=== PATIENT | male | born 1940 | race Caucasian/White ===

== ENCOUNTER 2018-05-23 11:59 | Day surgery (SDC) | payer MEDICARE ==
[~2018-05-23] VITALS: Ht 185.4 cm; Wt 79.4 kg
[2018-05-23] VITALS (8 sets, daily range): BP systolic 102–141; BP diastolic 61–85
[2018-05-23] MEDS ORDERED: sod bicarbonate 150mEq in D5W 1,150 ML IV ONE (12:30)
[2018-05-23] MEDS ORDERED: diphenhydrAMINE 25mg capsule PO PRN (12:30)
[2018-05-23 13:20] LABS: BASOPHILS % (AUTO) 0.6 % (0-1); EOSINOPHILS # (AUTO) 0.3 X10'3 (0-0.9); EOSINOPHILS % (AUTO) 3.8 % (0-6); LYMPHOCYTES # (AUTO) 0.9 X10'3 (1.1-4.8); LYMPHOCYTES % (AUTO) 11.8 % (21-51); MEAN CORPUSCULAR HGB CONC 31.6 % (33.0-36.5); MEAN CORPUSCULAR VOLUME 75.9 FL (78-98); MEAN PLATELET VOLUME 9.2 FL (7.4-10.4); MONOCYTES # (AUTO) 0.7 X10'3 (0-0.9); MONOCYTES % (AUTO) 9.8 % (2-12); NEUTROPHILS # (AUTO) 5.5 X10'3 (1.8-7.7); PRE OP HEMATOCRIT 37.3 % (42.0-52.0); PRE OP HEMOGLOBIN 11.8 g/dL (14.0-17.9); PRE OP PLATELET COUNT 175 X10'3 (140-440); RED BLOOD COUNT 4.91 X10'6 (4.70-6.10); RED CELL DISTRIBUTION WIDTH 25.2 % (11.5-14.5)
[2018-05-23 13:37] LABS: ALBUMIN 3.4 G/DL (3.4-5.0); ANION GAP 10 (8-16); BLOOD UREA NITROGEN 21 MG/DL (7-18); BUN/CREATININE RATIO 15.3 (5.4-32.0); CALCIUM 8.9 MG/DL (8.5-10.1); CHLORIDE 99 MMOL/L (99-107); CREATININE 1.37 MG/DL (0.60-1.10); GLUCOSE 87 MG/DL (70-104); INR 1.2 INR; MAGNESIUM 1.9 MG/DL (1.5-2.4); POTASSIUM 3.8 MMOL/L (3.5-5.1); PROTHROMBIN TIME 11.5 SECONDS (9.0-12.0); SODIUM 140 MMOL/L (135-145); TOTAL CARBON DIOXIDE 30.6 MMOL/L (24-32); eGFR 50 ML/MIN
[2018-05-23 13:40] LABS: PLATELET ESTIMATE NORMAL
[2018-05-23 13:41] LABS: ANISOCYTOSIS 3+; ELLIPTOCYTES 1+; HYPOCHROMASIA 1+; MICROCYTOSIS 2+
[2018-05-23] MEDS ORDERED: ceFAZolin 1GM/D5W- ADD-VANTAGE 50 ML IV ONE (14:31)
[2018-05-23] MEDS ORDERED: lidocaine 1%/epinephrine 1:100,000 injection 50ml vial ONE (14:32)
[2018-05-23] MEDS ORDERED: midazolam 2 mg/2 ml injection ONE ×2 (14:32→16:14)
[2018-05-23] MEDS ORDERED: ceFAZolin 1000mg inj ONE (14:32)
[2018-05-23] MEDS ORDERED: fentaNYL/PF 50MCG/1 ML 2ML syringe ONE ×2 (14:32→16:12)
[2018-05-23] MEDS ORDERED: proCHLORperazine 10 MG/2 ml inj ONE (15:22)
[2018-05-23] MEDS ORDERED: iohexol 350MG/ML 100ml bottle IV ONE (15:31)
[2018-05-23] MEDS ORDERED: O2 (17:24)
[2018-05-23] MEDS ORDERED: ASPI-1265 PO (17:24)
[2018-05-23] MEDS ORDERED: APIX5TAB3 PO (17:24)
[2018-05-23] MEDS ORDERED: LEVO125T8 PO (17:24)
[2018-05-23] MEDS ORDERED: PANT40TA4 PO (17:24)
[2018-05-23] MEDS ORDERED: ONDA4TAB12 PO (17:24)
[2018-05-23] MEDS ORDERED: DOBU500I5 IV (17:24)
[2018-05-23] MEDS ORDERED: MECL-111 PO (17:24)
[2018-05-23] MEDS ORDERED: CARV3.122 PO (17:24)
[2018-05-23] MEDS ORDERED: ATOR20TA66 PO (17:24)
[2018-05-23] MEDS ORDERED: LISI40TA4 PO (17:24)
[2018-05-23] MEDS ORDERED: FURO-150 PO (17:24)
[2018-05-23] MEDS ORDERED: METO-292 PO (17:57)
[2018-05-23] MEDS ORDERED: AMIO200T40 PO (17:57)
== END 2018-05-23 19:35 | disposition home or self-care (01) ==
LOC: SSTAY O 11:59
PROVIDERS: ATTEND Internal Medicine Cardiovascular Disease
DX: Z45.02 Encounter for adjustment and management of automatic implantable cardiac defibrillator (principal); I25.10 Atherosclerotic heart disease of native coronary artery without angina pectoris; I42.9 Cardiomyopathy, unspecified; I10 Essential (primary) hypertension; I48.91 Unspecified atrial fibrillation; E78.5 Hyperlipidemia, unspecified; E03.9 Hypothyroidism, unspecified; K21.9 Gastro-esophageal reflux disease without esophagitis; Z86.718 Personal history of other venous thrombosis and embolism; Z88.1 Allergy status to other antibiotic agents; Z88.8 Allergy status to other drugs, medicaments and biological substances; Z79.899 Other long term (current) drug therapy; Z87.01 Personal history of pneumonia (recurrent); Z95.0 Presence of cardiac pacemaker; Z95.1 Presence of aortocoronary bypass graft; Z98.890 Other specified postprocedural states
CPT/HCPCS: 33225; 33249; 36415; 80048; 83735; 85025; 85610; 93005; 93641; 99152; 99153; A4565; A6402; C1769; C1882; C1887; C1894; C1895; C1900; J0690; J0780; J2250; J3010; J3490; Q0163; Q9967; A4620

== ENCOUNTER 2020-05-18 12:21 | Emergency (ER) | payer MEDICARE ==
[~2020-05-18] VITALS: Ht 185.4 cm; Wt 93.3 kg
[~2020-05-18 12:21] MED LIST: APIX5TAB3 PO; ASPI-1265 PO; ATOR20TA66 PO; ATRIN IH; BENZ1LOZ30 MM; CARV6.2513 PO; DIGO125T97 PO; FINA5TAB11 PO; FOLI0.4T14 PO; LACT1CAP26 PO; LEVO137T2 PO; MELA3TAB11 PO; MYC15CR TP; NYST1000 PO; ONDA4TAB12 PO; PANT40TA54 PO; SACU1TAB PEG; TIOT4MIS3 IH
[2020-05-18 12:31] VITALS: BP 112/73
[2020-05-18 12:56] LABS: BASOPHILS # (AUTO) 0.1 X10'3 (0-0.2); BASOPHILS % (AUTO) 0.7 % (0-1); EOSINOPHILS # (AUTO) 0.3 X10'3 (0-0.9); EOSINOPHILS % (AUTO) 3.3 % (0-6); HEMATOCRIT 38.5 % (42.0-52.0); HEMOGLOBIN 12.4 g/dl (14.0-17.9); LYMPHOCYTES # (AUTO) 1.5 X10'3 (1.1-4.8); LYMPHOCYTES % (AUTO) 15.6 % (21-51); MEAN CORPUSCULAR HEMOGLOBIN 25.2 PG (27.0-31.0); MEAN CORPUSCULAR HGB CONC 32.1 g/dL (33.0-36.5); MEAN CORPUSCULAR VOLUME 78.4 FL (78-98); MEAN PLATELET VOLUME 9.1 FL (7.4-10.4); MONOCYTES # (AUTO) 1.3 X10'3 (0-0.9); MONOCYTES % (AUTO) 12.9 % (2-12); NEUTROPHILS # (AUTO) 6.6 X10'3 (1.8-7.7); NEUTROPHILS % (AUTO) 67.5 % (42-75); PLATELET COUNT 144 X10'3 (140-440); RED BLOOD COUNT 4.91 X10'6 (4.70-6.10); RED CELL DISTRIBUTION WIDTH 19.7 % (11.5-14.5); WHITE BLOOD COUNT 9.8 X10'3 (4.5-11.0)
[2020-05-18 13:14] LABS: ALANINE AMINOTRANSFERASE 26 U/L (12-78); ALBUMIN 3.7 G/DL (3.4-5.0); ALBUMIN/GLOBULIN RATIO 0.9 (1.1-1.5); ALKALINE PHOSPHATASE 74 IU/L (46-116); ANION GAP 9 (8-16); ANISOCYTOSIS 2+; ASPARTATE AMINO TRANSFERASE 23 U/L (10-37); BILIRUBIN,TOTAL 0.9 MG/DL (0.1-1.0); BLOOD UREA NITROGEN 22 MG/DL (7-18); BUN/CREATININE RATIO 15.2 (5.4-32.0); CALCIUM 8.8 MG/DL (8.5-10.1); CHLORIDE 103 MMOL/L (99-107); CREATININE 1.45 MG/DL (0.60-1.10); GLUCOSE 96 MG/DL (70-104); LARGE PLATELETS FEW; MICROCYTOSIS 1+; PLATELET ESTIMATE DECREASED; POTASSIUM 4.3 MMOL/L (3.5-5.1); SODIUM 136 MMOL/L (135-145); TOTAL CARBON DIOXIDE 23.8 MMOL/L (24-32); eGFR 47 ML/MIN
[2020-05-18] MEDS ORDERED: aspirin 81mg tab.chew PO ONE (14:05)
--- NOTE | 2020-05-18 14:20 | NUR ---
PT SENT TO THE ER BY UNIT SUPPORT REPRESENTATIVE AT [facility] FOR LABS TO CHECK HIS K+ LEVEL. PT DENIES ANY SOB, CP, DIZZINESS. LABS HAVE BEEN DRAWN AND PROVIDER TO DISCUSS RESULTS WITH PT.
== END 2020-05-18 14:39 | disposition home or self-care (01) ==
LOC: ER 12:23
DX: N17.9 Acute kidney failure, unspecified (principal); R77.8 Other specified abnormalities of plasma proteins; I50.9 Heart failure, unspecified; E78.00 Pure hypercholesterolemia, unspecified; I10 Essential (primary) hypertension; G89.29 Other chronic pain; R79.89 Other specified abnormal findings of blood chemistry; Z98.890 Other specified postprocedural states; Z88.8 Allergy status to other drugs, medicaments and biological substances; Z79.01 Long term (current) use of anticoagulants; Z79.82 Long term (current) use of aspirin; Z79.899 Other long term (current) drug therapy
CPT/HCPCS: 36415; 71045; 80053; 83880; 84484; 85008; 85025; 93005; 99285

== ENCOUNTER 2024-05-09 11:59 | Inpatient (IN) | payer MEDICARE, MEDICAID ==
[~2024-05-09] VITALS: Ht 185.4 cm; Wt 86.4 kg
[~2024-05-09 11:59] MED LIST changes: +AMI200T PO; -ATOR20TA66 PO; +ATOR80TA PO; -ATRIN IH; -BENZ1LOZ30 MM; -CARV6.2513 PO; +CEFD300C3 PO; -DIGO125T97 PO; -FINA5TAB11 PO; +FLO0.1T PO; +FLUT1BLS4 INH; +LIOT5TAB10 PO; +LOSA-415 PO; -MELA3TAB11 PO; +MELA5TAB66 PO; +METO-395 PO; +MIDO5TAB4 PO; -MYC15CR TP; -NYST1000 PO; +ONDA-243 PO; -ONDA4TAB12 PO; -SACU1TAB PEG; +SPIR25TA5 PO; -TIOT4MIS3 IH
[2024-05-09] MEDS ORDERED: normal saline 1000ML IV soln IVB ONE (13:30)
[2024-05-09 13:48] LABS: BASOPHILS # (AUTO) 0.1 X10'3 (0-0.2); EOSINOPHILS # (AUTO) 0.1 X10'3 (0-0.9); EOSINOPHILS % (AUTO) 0.7 % (0-6); HEMATOCRIT 35.5 % (42.0-52.0); HEMOGLOBIN 11.6 g/dl (14.0-17.9); LYMPHOCYTES # (AUTO) 0.6 X10'3 (1.1-4.8); LYMPHOCYTES % (AUTO) 6.5 % (21-51); MEAN CORPUSCULAR HEMOGLOBIN 25.9 PG (27.0-31.0); MEAN CORPUSCULAR HGB CONC 32.7 g/dL (33.0-36.5); MEAN CORPUSCULAR VOLUME 79.4 FL (78-98); MEAN PLATELET VOLUME 8.8 FL (7.4-10.4); MONOCYTES # (AUTO) 1.3 X10'3 (0-0.9); MONOCYTES % (AUTO) 13.8 % (2-12); NEUTROPHILS # (AUTO) 7.1 X10'3 (1.8-7.7); PLATELET COUNT 137 X10'3 (140-440); RED BLOOD COUNT 4.47 X10'6 (4.70-6.10); RED CELL DISTRIBUTION WIDTH 21.8 % (11.5-14.5); WHITE BLOOD COUNT 9.1 X10'3 (4.5-11.0)
[2024-05-09 14:12] LABS: ANION GAP 9 (8-16); BLOOD UREA NITROGEN 25 MG/DL (7-18); BUN/CREATININE RATIO 18.1 (10.0-20.0); CALCIUM 8.7 MG/DL (8.5-10.1); CHLORIDE 91 MMOL/L (99-107); CREATININE 1.38 MG/DL (0.60-1.10); GLUCOSE 107 MG/DL (70-104); MAGNESIUM 1.7 MG/DL (1.5-2.4); POTASSIUM 4.3 MMOL/L (3.5-5.1); PRO BRAIN NATRIURETIC PEPTIDE 4884 PG/ML (0-450); SODIUM 121 MMOL/L (135-145); TOTAL CARBON DIOXIDE 21.3 MMOL/L (24-32); eCRCL 44 ML/MIN; eGFR 49 ML/MIN
[2024-05-09 14:34] LABS: ACANTHOCYTES FEW; ANISOCYTOSIS 3+; MICROCYTOSIS 1+; PLATELET ESTIMATE DECREASED
[2024-05-09 14:35] LABS: BURR CELLS FEW
[2024-05-09 14:36] LABS: ELLIPTOCYTES 2+
[2024-05-09] MEDS: CefTRIAXone 2gm/D5W 50ml BAG 50 ML IV ONE (14:42)
[2024-05-09] MEDS: normal saline 1000ML IV soln IVB ONE (14:45)
[2024-05-09] MEDS ORDERED: mag hydrox/Alum hydrox/simeth 30ml oral suspension PO PRN (15:30)
[2024-05-09] MEDS ORDERED: ondansetron/PF 4mg/2ml inj IV PRN (15:30)
[2024-05-09] MEDS ORDERED: potassium Cl 20 mEq SR tablet PO PRN ×2 (15:30)
[2024-05-09] MEDS ORDERED: magnesium Cl slow-release 64mg tablet PO PRN (15:30)
[2024-05-09] MEDS ORDERED: morphine 2 MG/ML inj. syringe IV PRN ×2 (15:30)
[2024-05-09] MEDS ORDERED: acetaminophen 325mg tablet PO PRN (15:30)
[2024-05-09] MEDS: furosemide 40mg/4ml inj IV SCH (16:25)
[2024-05-09 17:56] LABS: BILIRUBIN,URINE NEGATIVE (Neg); CLARITY,URINE CLEAR (Clear); COLOR,URINE YELLOW (Yellow); GLUCOSE, URINE NEGATIVE (Neg); KETONES,URINE NEGATIVE (Neg); LEUKOCYTE ESTERASE ,URINE NEGATIVE (Neg); NITRITES, URINE NEGATIVE (Neg); OCCULT BLOOD,URINE NEGATIVE (Neg); PROTEIN,URINE NEGATIVE (Neg); UROBILINOGEN,URINE 0.2 E.U/dL (0.2-1.0)
[2024-05-09 18:02] LABS: UA COLLECTION TYPE VOIDED
[2024-05-09] MEDS: docusate sod 100mg capsule PO SCH (19:39)
[2024-05-10] VITALS (9 sets, daily range): BP systolic 112–139; BP diastolic 65–89; PULSE 70–81; RESP 14–22; TEMP 96.7–99.2; O2SAT 91–98
[2024-05-10 08:06] LABS: BASOPHILS # (AUTO) 0.1 X10'3 (0-0.2); BASOPHILS % (AUTO) 1.4 % (0-1); EOSINOPHILS # (AUTO) 0.1 X10'3 (0-0.9); HEMATOCRIT 35.5 % (42.0-52.0); HEMOGLOBIN 11.5 g/dl (14.0-17.9); LYMPHOCYTES # (AUTO) 0.6 X10'3 (1.1-4.8); LYMPHOCYTES % (AUTO) 7.2 % (21-51); MEAN CORPUSCULAR HEMOGLOBIN 25.9 PG (27.0-31.0); MEAN CORPUSCULAR HGB CONC 32.5 g/dL (33.0-36.5); MEAN CORPUSCULAR VOLUME 79.7 FL (78-98); MEAN PLATELET VOLUME 8.9 FL (7.4-10.4); MONOCYTES # (AUTO) 1.1 X10'3 (0-0.9); MONOCYTES % (AUTO) 13.6 % (2-12); NEUTROPHILS % (AUTO) 76.8 % (42-75); PLATELET COUNT 134 X10'3 (140-440); RED BLOOD COUNT 4.45 X10'6 (4.70-6.10); RED CELL DISTRIBUTION WIDTH 21.1 % (11.5-14.5); WHITE BLOOD COUNT 7.9 X10'3 (4.5-11.0)
[2024-05-10 08:07] LABS: ALANINE AMINOTRANSFERASE 104 U/L (12-78); ALBUMIN 3.1 G/DL (3.4-5.0); ALBUMIN/GLOBULIN RATIO 0.8 (1.1-1.5); ALKALINE PHOSPHATASE 95 IU/L (46-116); ANION GAP 8 (8-16); ASPARTATE AMINO TRANSFERASE 77 U/L (10-37); BILIRUBIN,TOTAL 2.3 MG/DL (0.1-1.0); BLOOD UREA NITROGEN 24 MG/DL (7-18); BUN/CREATININE RATIO 15.7 (10.0-20.0); CALCIUM 8.6 MG/DL (8.5-10.1); CHLORIDE 94 MMOL/L (99-107); CREATININE 1.53 MG/DL (0.60-1.10); GLUCOSE 86 MG/DL (70-104); MAGNESIUM 1.8 MG/DL (1.5-2.4); PHOSPHORUS 4.1 MG/DL (2.3-4.5); POTASSIUM 3.7 MMOL/L (3.5-5.1); SODIUM 127 MMOL/L (135-145); TOTAL CARBON DIOXIDE 25.5 MMOL/L (24-32); eCRCL 40 ML/MIN; eGFR 43 ML/MIN
[2024-05-10] MEDS ORDERED: pneumococcal 23-VAL P-sac vacc 25 mcg/0.5ml vial IMVAC ONE (10:00)
[2024-05-10] MEDS: CefTRIAXone/D5W-Rocephin 1gm 50 ML IV SCH (20:47)
[2024-05-11] VITALS (12 sets, daily range): BP systolic 100–131; BP diastolic 53–79; PULSE 69–80; RESP 15–24; TEMP 97.3–99.7; O2SAT 91–98
[2024-05-11] MEDS: temazepam 15mg capsule PO PRN (01:00)
[2024-05-11] MEDS ORDERED: normal saline 1000ml 1,000 ML IV SCH (01:05)
[2024-05-11 07:39] LABS: BASOPHILS # (AUTO) 0.1 X10'3 (0-0.2); BASOPHILS % (AUTO) 1.1 % (0-1); EOSINOPHILS # (AUTO) 0.1 X10'3 (0-0.9); EOSINOPHILS % (AUTO) 1.9 % (0-6); HEMATOCRIT 36.4 % (42.0-52.0); LYMPHOCYTES # (AUTO) 0.7 X10'3 (1.1-4.8); MEAN CORPUSCULAR HEMOGLOBIN 26.1 PG (27.0-31.0); MEAN CORPUSCULAR HGB CONC 32.9 g/dL (33.0-36.5); MEAN CORPUSCULAR VOLUME 79.2 FL (78-98); MEAN PLATELET VOLUME 8.2 FL (7.4-10.4); MONOCYTES % (AUTO) 13.6 % (2-12); NEUTROPHILS # (AUTO) 5.7 X10'3 (1.8-7.7); NEUTROPHILS % (AUTO) 74.4 % (42-75); PLATELET COUNT 148 X10'3 (140-440); RED BLOOD COUNT 4.59 X10'6 (4.70-6.10); RED CELL DISTRIBUTION WIDTH 21.1 % (11.5-14.5); WHITE BLOOD COUNT 7.6 X10'3 (4.5-11.0)
[2024-05-11] MEDS: apixaban 5mg tablet PO SCH (08:22)
[2024-05-11 08:23] LABS: ALANINE AMINOTRANSFERASE 107 U/L (12-78); ALBUMIN/GLOBULIN RATIO 0.7 (1.1-1.5); ALKALINE PHOSPHATASE 97 IU/L (46-116); ANION GAP 9 (8-16); ASPARTATE AMINO TRANSFERASE 81 U/L (10-37); BILIRUBIN,TOTAL 2.1 MG/DL (0.1-1.0); BLOOD UREA NITROGEN 24 MG/DL (7-18); BUN/CREATININE RATIO 17.4 (10.0-20.0); CALCIUM 8.8 MG/DL (8.5-10.1); CHLORIDE 92 MMOL/L (99-107); CREATININE 1.38 MG/DL (0.60-1.10); GLUCOSE 90 MG/DL (70-104); MAGNESIUM 1.8 MG/DL (1.5-2.4); PHOSPHORUS 3.3 MG/DL (2.3-4.5); SODIUM 128 MMOL/L (135-145); THYROID STIMULATING HORMONE 0.95 ulU/ml (0.34-4.50); TOTAL CARBON DIOXIDE 27.2 MMOL/L (24-32); TOTAL PROTEIN 7.2 G/DL (6.4-8.2); eCRCL 44 ML/MIN; eGFR 49 ML/MIN
[2024-05-11] MEDS: levoTHYROXINE 25mcg tablet PO SCH (08:23)
[2024-05-11] MEDS: levoTHYROXINE 112mcg tablet PO SCH (08:23)
[2024-05-11] MEDS: spironolactone 25 MG tablet PO SCH (08:25)
[2024-05-11] MEDS ORDERED: spironolactone 25 MG tablet PO SCH (08:30)
[2024-05-11] MEDS: metoprolol succinate 25mg (24-HOUR) SR. Tablet PO SCH (14:20)
[2024-05-11] MEDS: liothyronine sod 5mcg tablet PO SCH (14:20)
[2024-05-11] MEDS: folic acid 1mg tablet PO SCH (15:31)
[2024-05-11] MEDS: midodrine 5mg tablet PO SCH (15:31)
[2024-05-11] MEDS: aspirin 81mg tab.chew PO SCH (15:31)
[2024-05-11 16:29] LABS: ABG BASE EXCESS 2.5 mmol/L (-2.0-3.0); ABG HCO3 23.7 mmol/L (21.0-28.0); ABG OXYGEN SATURATION 95.5 % (94.0-98.0); ABG PCO2 (T) 26.8 mmHg (35.0-48.0); ABG PH (T) 7.564 (7.350-7.450); ABG PO2 (T) 75.2 mmHg (83.0-108.0); ALLEN'S TEST POSITIVE; FCOHb 1.1 % (0.5-1.5); FHHb 4.4 % (0.0-5.0); FMetHb 0.3 % (0.0-1.5); FO2Hb 94.2 % (94.0-98.0); MODE ROOM AIR; TOTAL HEMOGLOBIN 12.3 G/dl (13.5-17.5)
[2024-05-11] MEDS: albuterol 2.5 MG/3 ML nebule NEB SCH (19:26)
[2024-05-11] MEDS ORDERED: non-formulary drug (Cefdinir* 1 CAP) PO SCH (20:00)
[2024-05-11] MEDS: losartan 25mg tablet PO SCH (21:21)
[2024-05-11] MEDS: lactobacillus rhamnosus 10,000 MMU CELLS/CAPSULE PO SCH (21:21)
[2024-05-11] MEDS: atorvastatin 20mg tablet PO SCH (21:22)
[2024-05-11] MEDS: amiodarone 200mg tablet PO SCH (21:22)
[2024-05-11] MEDS: Melatonin 3mg tablet PO SCH (21:22)
[2024-05-12] VITALS (11 sets, daily range): BP systolic 106–123; BP diastolic 55–80; PULSE 64–72; RESP 14–25; TEMP 97.2–98.5; O2SAT 92–97
[2024-05-12 06:36] LABS: BASOPHILS # (AUTO) 0.1 X10'3 (0-0.2); BASOPHILS % (AUTO) 1.2 % (0-1); EOSINOPHILS # (AUTO) 0.1 X10'3 (0-0.9); EOSINOPHILS % (AUTO) 0.9 % (0-6); HEMATOCRIT 36.1 % (42.0-52.0); HEMOGLOBIN 11.7 g/dl (14.0-17.9); LYMPHOCYTES # (AUTO) 0.6 X10'3 (1.1-4.8); MEAN CORPUSCULAR HEMOGLOBIN 25.6 PG (27.0-31.0); MEAN CORPUSCULAR HGB CONC 32.6 g/dL (33.0-36.5); MEAN CORPUSCULAR VOLUME 78.7 FL (78-98); MONOCYTES # (AUTO) 1.2 X10'3 (0-0.9); MONOCYTES % (AUTO) 15.4 % (2-12); NEUTROPHILS # (AUTO) 5.8 X10'3 (1.8-7.7); NEUTROPHILS % (AUTO) 74.5 % (42-75); PLATELET COUNT 155 X10'3 (140-440); RED BLOOD COUNT 4.58 X10'6 (4.70-6.10); RED CELL DISTRIBUTION WIDTH 21.4 % (11.5-14.5); WHITE BLOOD COUNT 7.8 X10'3 (4.5-11.0)
[2024-05-12 06:52] LABS: ALANINE AMINOTRANSFERASE 105 U/L (12-78); ALBUMIN 2.8 G/DL (3.4-5.0); ALBUMIN/GLOBULIN RATIO 0.7 (1.1-1.5); ALKALINE PHOSPHATASE 94 IU/L (46-116); ANION GAP 6 (8-16); ASPARTATE AMINO TRANSFERASE 63 U/L (10-37); BILIRUBIN,TOTAL 2.1 MG/DL (0.1-1.0); BLOOD UREA NITROGEN 23 MG/DL (7-18); BUN/CREATININE RATIO 17.2 (10.0-20.0); CALCIUM 8.6 MG/DL (8.5-10.1); CHLORIDE 92 MMOL/L (99-107); CREATININE 1.34 MG/DL (0.60-1.10); GLUCOSE 103 MG/DL (70-104); MAGNESIUM 1.7 MG/DL (1.5-2.4); PHOSPHORUS 3.4 MG/DL (2.3-4.5); SODIUM 126 MMOL/L (135-145); TOTAL CARBON DIOXIDE 28.3 MMOL/L (24-32); TOTAL PROTEIN 6.8 G/DL (6.4-8.2); eCRCL 46 ML/MIN; eGFR 51 ML/MIN
[2024-05-12 06:55] LABS: POTASSIUM 4.4 MMOL/L (3.5-5.1)
[2024-05-12] MEDS ORDERED: non-formulary drug (Levothyroxine Sodium 1 TAB) PO SCH (07:30)
[2024-05-12] MEDS: fludrocortisone acetate 0.1mg tablet PO SCH (07:51)
[2024-05-12] MEDS: Fluticasone/Umeclidin/Vilanter (Trelegy Ellipta 100-62.5-25) IH SCH (08:00)
[2024-05-12 08:48] LABS: ANISOCYTOSIS 3+; ELLIPTOCYTES 2+; HYPOCHROMASIA 1+; MICROCYTOSIS 1+; PLATELET ESTIMATE NORMAL; POIKILOCYTOSIS 3+
[2024-05-12 08:49] LABS: ACANTHOCYTES 1+; BURR CELLS 1+
[2024-05-12] MEDS: albuterol 2.5 MG/3 ML nebule NEB PRN (15:15)
[2024-05-12] MEDS: albuterol 2.5 MG/3 ML nebule NEB SCH (21:23)
[2024-05-13] VITALS (12 sets, daily range): BP systolic 119–129; BP diastolic 6–73; PULSE 70–84; RESP 14–23; TEMP 96.8–98.7; O2SAT 92–97
[2024-05-13 06:21] LABS: BASOPHILS # (AUTO) 0.1 X10'3 (0-0.2); BASOPHILS % (AUTO) 1.3 % (0-1); EOSINOPHILS # (AUTO) 0.1 X10'3 (0-0.9); EOSINOPHILS % (AUTO) 1.8 % (0-6); HEMATOCRIT 34.6 % (42.0-52.0); HEMOGLOBIN 11.5 g/dl (14.0-17.9); LYMPHOCYTES # (AUTO) 0.7 X10'3 (1.1-4.8); LYMPHOCYTES % (AUTO) 8.9 % (21-51); MEAN CORPUSCULAR HEMOGLOBIN 26.6 PG (27.0-31.0); MEAN CORPUSCULAR HGB CONC 33.4 g/dL (33.0-36.5); MEAN CORPUSCULAR VOLUME 79.6 FL (78-98); MEAN PLATELET VOLUME 8.1 FL (7.4-10.4); MONOCYTES # (AUTO) 1.1 X10'3 (0-0.9); MONOCYTES % (AUTO) 13.4 % (2-12); NEUTROPHILS # (AUTO) 6.2 X10'3 (1.8-7.7); NEUTROPHILS % (AUTO) 74.6 % (42-75); PLATELET COUNT 157 X10'3 (140-440); RED BLOOD COUNT 4.34 X10'6 (4.70-6.10); RED CELL DISTRIBUTION WIDTH 21.3 % (11.5-14.5); WHITE BLOOD COUNT 8.3 X10'3 (4.5-11.0)
[2024-05-13 06:31] LABS: ANION GAP 8 (8-16); CALCIUM 8.8 MG/DL (8.5-10.1); CHLORIDE 94 MMOL/L (99-107); CREATININE 1.26 MG/DL (0.60-1.10); MAGNESIUM 1.8 MG/DL (1.5-2.4); POTASSIUM 3.9 MMOL/L (3.5-5.1); SODIUM 128 MMOL/L (135-145); TOTAL CARBON DIOXIDE 26.2 MMOL/L (24-32); eCRCL 48 ML/MIN; eGFR 54 ML/MIN
[2024-05-13 07:14] LABS: ALANINE AMINOTRANSFERASE 94 U/L (12-78); ALBUMIN 2.8 G/DL (3.4-5.0); ALBUMIN/GLOBULIN RATIO 0.7 (1.1-1.5); ALKALINE PHOSPHATASE 86 IU/L (46-116); ASPARTATE AMINO TRANSFERASE 53 U/L (10-37); BLOOD UREA NITROGEN 26 MG/DL (7-18); BUN/CREATININE RATIO 20.6 (10.0-20.0); GLUCOSE 96 MG/DL (70-104); PHOSPHORUS 3.2 MG/DL (2.3-4.5); TOTAL PROTEIN 6.6 G/DL (6.4-8.2)
[2024-05-13] MEDS: budesonide 0.5mg/2ml UD nebule IH SCH (09:00)
[2024-05-13 09:21] LABS: ANISOCYTOSIS 3+; ELLIPTOCYTES 1+; MICROCYTOSIS 1+; PLATELET ESTIMATE NORMAL; POIKILOCYTOSIS FEW; SCHISTOCYTES FEW; TEAR DROP CELLS FEW
[2024-05-13] MEDS: metoprolol succinate 25mg (24-HOUR) SR. Tablet PO SCH (11:26)
[2024-05-13] MEDS: liothyronine sod 5mcg tablet PO ONE (15:28)
[2024-05-13] MEDS: magnesium hydroxide 30ml (MOM) UD suspension PO PRN (15:28)
[2024-05-14] VITALS (13 sets, daily range): BP systolic 108–130; BP diastolic 66–79; PULSE 68–87; RESP 14–26; TEMP 97.4–98.9; O2SAT 93–99
[2024-05-14 06:58] LABS: ALANINE AMINOTRANSFERASE 84 U/L (12-78); ALBUMIN 2.7 G/DL (3.4-5.0); ALBUMIN/GLOBULIN RATIO 0.6 (1.1-1.5); ALKALINE PHOSPHATASE 86 IU/L (46-116); ANION GAP 4 (8-16); ASPARTATE AMINO TRANSFERASE 55 U/L (10-37); BILIRUBIN,TOTAL 1.5 MG/DL (0.1-1.0); BLOOD UREA NITROGEN 23 MG/DL (7-18); BUN/CREATININE RATIO 19.2 (10.0-20.0); CALCIUM 8.7 MG/DL (8.5-10.1); CHLORIDE 93 MMOL/L (99-107); GLUCOSE 96 MG/DL (70-104); MAGNESIUM 2.1 MG/DL (1.5-2.4); PHOSPHORUS 2.9 MG/DL (2.3-4.5); POTASSIUM 4.4 MMOL/L (3.5-5.1); SODIUM 125 MMOL/L (135-145); TOTAL CARBON DIOXIDE 27.9 MMOL/L (24-32); TOTAL PROTEIN 6.9 G/DL (6.4-8.2); eCRCL 51 ML/MIN; eGFR 58 ML/MIN
[2024-05-14 07:19] LABS: BASOPHILS # (AUTO) 0.1 X10'3 (0-0.2); BASOPHILS % (AUTO) 1.7 % (0-1); EOSINOPHILS # (AUTO) 0.3 X10'3 (0-0.9); EOSINOPHILS % (AUTO) 3.8 % (0-6); HEMATOCRIT 35.3 % (42.0-52.0); HEMOGLOBIN 11.4 g/dl (14.0-17.9); LYMPHOCYTES # (AUTO) 0.7 X10'3 (1.1-4.8); LYMPHOCYTES % (AUTO) 8.8 % (21-51); MEAN CORPUSCULAR HEMOGLOBIN 25.5 PG (27.0-31.0); MEAN CORPUSCULAR HGB CONC 32.2 g/dL (33.0-36.5); MEAN CORPUSCULAR VOLUME 79.3 FL (78-98); MEAN PLATELET VOLUME 8.3 FL (7.4-10.4); MONOCYTES % (AUTO) 11.6 % (2-12); NEUTROPHILS # (AUTO) 6.1 X10'3 (1.8-7.7); NEUTROPHILS % (AUTO) 74.1 % (42-75); PLATELET COUNT 158 X10'3 (140-440); RED BLOOD COUNT 4.46 X10'6 (4.70-6.10); RED CELL DISTRIBUTION WIDTH 21.5 % (11.5-14.5); WHITE BLOOD COUNT 8.3 X10'3 (4.5-11.0)
[2024-05-14 08:28] LABS: PLATELET ESTIMATE NORMAL
[2024-05-14 08:29] LABS: ELLIPTOCYTES 1+; SCHISTOCYTES FEW
[2024-05-14 08:30] LABS: ANISOCYTOSIS 3+; POLYCHROMASIA FEW
[2024-05-14] MEDS: bisacodyl 10mg suppository rectal RC PRN (12:50)
[2024-05-14] MEDS ORDERED: ondansetron 4mg rapidly disintigrating tab PO PRN (14:45)
[2024-05-15] VITALS (11 sets, daily range): BP systolic 103–122; BP diastolic 56–69; PULSE 70–72; RESP 16–26; TEMP 96.9–97.8; O2SAT 81–98
[2024-05-15] MEDS ORDERED: MIDO5TAB4 PO (13:26)
[2024-05-15] MEDS ORDERED: CEFD300C3 PO (18:58)
[2024-05-15] MEDS ORDERED: AZIT-164 PO (19:16)
== END 2024-05-15 19:32 | disposition home health service (06) | DRG 177 ==
LOC: ER 12:01 → ED HOLD 15:50 → PCU 3S 05-10 01:35
PROVIDERS: ADMIT Registered Nurse Psychiatric/Mental Health; ATTEND Registered Nurse Psychiatric/Mental Health
DX: J15.69 Pneumonia due to other Gram-negative bacteria (principal); G93.41 Metabolic encephalopathy; I50.23 Acute on chronic systolic (congestive) heart failure; I13.0 Hypertensive heart and chronic kidney disease with heart failure and stage 1 through stage 4 chronic kidney disease, or unspecified chronic kidney disease; N17.9 Acute kidney failure, unspecified; J44.1 Chronic obstructive pulmonary disease with (acute) exacerbation; E87.1 Hypo-osmolality and hyponatremia; E87.3 Alkalosis; E44.1 Mild protein-calorie malnutrition; J44.0 Chronic obstructive pulmonary disease with (acute) lower respiratory infection; J15.9 Unspecified bacterial pneumonia; Z20.822 Contact with and (suspected) exposure to COVID-19; E03.9 Hypothyroidism, unspecified; G89.29 Other chronic pain; K21.9 Gastro-esophageal reflux disease without esophagitis; N18.9 Chronic kidney disease, unspecified; Y95 Nosocomial condition; G20.A1 Parkinson's disease without dyskinesia, without mention of fluctuations; I25.10 Atherosclerotic heart disease of native coronary artery without angina pectoris; I25.2 Old myocardial infarction; I48.91 Unspecified atrial fibrillation; J98.4 Other disorders of lung; Z79.01 Long term (current) use of anticoagulants; Z86.73 Personal history of transient ischemic attack (TIA), and cerebral infarction without residual deficits; Z88.1 Allergy status to other antibiotic agents; Z95.1 Presence of aortocoronary bypass graft; Z68.25 Body mass index [BMI] 25.0-25.9, adult; W19.XXXA Unspecified fall, initial encounter
CPT/HCPCS: 36415; 36600; 70450; 71045; 73020; 73030; 80048; 80053; 81003; 82803; 83605; 83735; 83880; 83930; 84100; 84145; 84300; 84443; 85008; 85018; 85025; 87040; 87081; 87811; 90732; 93005; 93308; 94640; 94760; 96365; 97034; 97110; 97161; 97530; 99285; A4349; A4615; A6213; A6250; A6449; A6590; G0378; J0696; J1940; J7030; J7040